=== PATIENT | male | born 1960 | race Caucasian/White ===

== ENCOUNTER 2022-10-27 08:30 | Day surgery (SDC) | payer BC, SELFPAY ==
--- OUTSIDE RECORDS SUMMARY | 2022-10-27 08:32 | XMS_ITS | Continuity of Care Document ---
Author Name Unknown Organization [facility] Joao Malcolm lt Address [address] [place] [address]- Care Team Providers Care Nurse Esthetician Name Role Phone Jose Faust MD Primary Care Physician [phone] [place] [facility] [facility] [place] [facility] Adult [address] [place] [address]- [facility] Encounter Diagnosis Well adult exam(Discharge Diagnosis) - 03/09/20 Seasonal allergies(Discharge Diagnosis) - 03/09/20 Sleep apnea(Discharge Diagnosis) - 03/09/20 Lump in neck(Discharge Diagnosis) - 03/09/20 Xanthoma of left upper eyelid(Discharge Diagnosis) - 03/09/20 Facial skin lesion(Discharge Diagnosis) - 03/09/20 Hearing loss, left(Discharge Diagnosis) - 03/09/20 Attending Physician: Jose Faust MD Allergies, Adverse Reactions, Alerts Substance Reaction Severity Status doxycycline Active Immunizations Given and Recorded Vaccine Date Status Refusal Reason influenza virus vaccine, inactivated 04/30/19 Give n influenza virus vaccine, inactivated 05/10/18 Give n tetanus/diphtheria/pertussis, acel(Tdap) 1 02/26/18 Given 1Result Comment: [02/26/2018] [facility] [id number] Medications Advil 200 mg oral tablet 2 tablet = 400 mg, By Mouth, 3 times a day, 0 Refills, Maintenance, 12/06/18 8:32:10 EDT Start Date: 12/06/18 Status: Ordered Lien Allergy 60 mg oral tablet 1 tablet = 60 mg, By Mouth, Daily, # 30 tablet, 0 Refills, Maintenance, 10/21/19 9:52:00 EDT Start Date: 10/21/19 Status: Ordered BORON BORON, Refills 0, Maintenance, 11/21/18 13:23:24 EDT, Compound Start Date: 11/21/18 Status: Ordered Colace sodium 100 mg oral capsule 100 mg, 1, capsule, By Mouth, 2 times a day, PRN, # 20 capsule, Refills 0, Tot. Refills 0, Maintenance, for constipation, 12/12/19 13:17:00 EDT, Route to Pharmacy Electronically, [facility] # [facility],174, cm, 12/12/19 10:16:00 EDT, Height, 74, kg, ... Start Date: 12/12/19 Status: Ordered Flonase 50 mcg/inh nasal spray 1 sprays = 50 mcg, Nares, Both, 2 times a day, # 16 Gm, 1 Refills, Maintenance, 09/01/19 11:36:00 EST, Nasal [place], [facility] # 50, 1 sprays Nares, Both 2 times a day, 174, cm, 05/21/19 11:07:00EDT, Height, 74, kg, 01/14/18 14:23:00 EDT, Dry Weight Start Date: 09/01/19 Status: Ordered iodine 1 tablet, By Mouth, Daily, 0 Refills, Maintenance, 03/09/20 8:49:00 EDT Start Date: 03/09/20 Status: Ordered motrin motrin, Refills 0, Maintenance, 03/05/19 14:45:50 EDT, Compound Start Date: 03/05/19 Status: Ordered Multivitamin 1 tablet, By Mouth, Daily, 0 Refills, Maintenance, 01/13/18 16:26:01 EDT Start Date: 01/13/18 Status: Ordered Proctozone HC 2.5% rectal cream with applicator 1 application, Rectally, 2 times a day, # 30 Gm, 1 Refills, Maintenance, 01/12/20 9:49:00 EDT, Cream, [facility] # 50, 1 application Rectally 2 times a day,x14 days, 174, cm, 12/18/19 10:19:00 EDT, Height, 74, kg, 01/14/18 14:23:00 EDT, Dry Weight Start Date: 01/12/20 Stop Date: 02/09/20 Status: Ordered rosuvastatin 5 mg oral tablet 1 tablet = 5 mg, By Mouth, Every 48 hours, # 90 tablet, 1 Refills, Maintenance, 03/09/20 8:57:00 EDT, [facility] # [facility], 174, cm, 03/09/20 8:46:00 EDT, Height Start Date: 03/09/20 Status: Ordered Problem List Condition Effective Dates Status Health Status Inform ant Allergic rhinitis(Confirmed) Active BPPV (benign paroxysmal posi tional vertigo)(Confirmed) Active Deviated septum(Confirmed) Active Hyperglycemia(Confirmed) Active Hyperlipidemia(Confirmed) Active Facial skin lesion(Confirmed) Active Lump in neck(Confirmed) Active Night sweats(Confirmed) Active Obstructive sleep apnea(Confirmed) Active Well adult exam(Confirmed) Active Seasonal allergies(Confirmed) Active Sleep apnea(Confirmed) Active Tinnitus(Confirmed) Active Tubular adenoma of colon(Confirmed) Active Hearing loss, left(Confirmed) Active Xanthoma of left upper eyelid(Confirmed) Active Diagnosis Diagnosis Type Effective Dates Health Status Cl inical Service Informant Well adult exam Discharge Diagnosis 03/09/20 Seasonal allergies Discharge Diagnosis 03/09/20 Sleep apnea Discharge Diagnosis 03/09/20 Lump in neck Discharge Diagnosis 03/09/20 Xanthoma of left upper eyelid Discharge Diagnosis 03/09/20 Facial skin lesion Discharge Diagnosis 03/09/20 Hearing loss, left Discharge Diagnosis 03/09/20 Vital Signs Most recent to oldest [Reference Range]: 1 Height 174 cm (03/09/20 8:46 AM) Weight 74.9 kg (03/09/20 8:46 AM) Oxygen Saturation [94-100 %] 99 % (03/09/20 8:46 AM) Pulse Rate [55-90 bpm] 52 bpm *L* (03/09/20 8:46 AM) Body Mass Index [18.5-24.99] 24.74 (03/09/20 8:46 AM) Blood Pressure [90-138/55-84 mm Hg] 108/ 70mm Hg (03/09/20 8:46 AM) Respiratory Rate [16-30 br/min] 16 br/mi n (03/09/20 8:46 AM) Temperature [96.8-100.4 DegF] 97.9 DegF (03/09/20 8:46 AM) Mode of Delivery (Oxygen) Room air (03/09/20 8:46 AM) Blood pressure sites Arm, right (03/09/20 8:46 AM) Temperature Route Oral (03/09/20 8:46 AM) Weight Obtained Via Standing scale (03/09/20 8:46 AM) Social History Social History Type Response Smoking Status Never smoker; Tobacc o user in household: No entered on: 07/19/17 Sex
--- OUTSIDE RECORDS SUMMARY | 2022-10-27 08:32 | XMS_ITS | Continuity of Care Document ---
Author Name Unknown Organization [facility] Address [address] [place] [address] [address] [place] [address]- Care Team Providers Care Bass Viol Repairer Name Role Phone Jose Faust MD Primary Care Physician [place] [facility] [place] 01/12/20 - 01/19/[address] [place] [address]- [facility] Attending Physician: Antoinette DUDLEY, Krissy Dean Referring Physician: Jose Faust MD Allergies, Adverse Reactions, Alerts Substance Reaction Severity Status doxycycline Active Immunizations Given and Recorded Vaccine Date Status Refusal Reason influenza virus vaccine, inactivated 04/30/19 Give n influenza virus vaccine, inactivated 05/10/18 Give n tetanus/diphtheria/pertussis, acel(Tdap) 1 02/26/18 Given 1Result Comment: [02/26/2018] [facility] [id number] Medications Advil 200 mg oral tablet 2 [...] 12/12/19 13:17:00 EDT, Route to Pharmacy Electronically, [facility] # 50,174, cm, 12/12/19 10:16:00 EDT, Height, 74, kg, /... Start Date: 12/12/19 Status: Ordered Flonase 50 mcg/inh nasal spray 1 sprays = 50 mcg, Nares, Both, 2 times a day, # 16 Gm, 1 Refills, Maintenance, 09/01/19 11:36:00 EST, Nasal [place], [facility] # 50, 1 sprays Nares, Both 2 times a day, 174, cm, 05/21/19 11:07:00EDT, Height, 74, kg, 01/14/18 14:23:00 EDT, Dry Weight Start Date: 09/01/19 Status: Ordered motrin motrin, Refills 0, Maintenance, 03/05/19 14:45:50 EDT, Compound Start Date: 03/05/19 Status: Ordered Multivitamin 1 tablet, By Mouth, Daily, 0 Refills, Maintenance, 01/13/18 16:26:01 EDT Start Date: 01/13/18 Status: Ordered predniSONE 20 mg oral tablet 2 tablet = 40 mg, By Mouth, Daily, # 14 tablet, 0 Refills, Maintenance, 12/18/19 11:30:00 EDT, [facility] # 50, 174, cm, 12/18/19 10:19:00 EDT, Height, 74, kg, 01/14/18 14:23:00 EDT, Dry Weight Start Date: 12/18/19 Status: Ordered Proctozone HC 2.5% rectal cream with applicator 1 application, Rectally, 2 times a day, # 30 Gm, 1 Refills, Maintenance, 01/12/20 9:49:00 EDT, Cream, [facility] # 50, 1 application Rectally 2 times a day,x14 days, 174, cm, 12/18/19 10:19:00 EDT, Height, 74, kg, 01/14/18 14:23:00 EDT, Dry Weight Start Date: 01/12/20 Stop Date: 02/09/20 Status: Ordered rosuvastatin 5 mg oral tablet 1 tablet = 5 mg, By Mouth, Every 48 hours, # 90 tablet, 1 Refills, Maintenance, 12/04/18 11:38:11 EDT Start Date: 12/04/18 Status: Ordered Problem List Condition Effective Dates Status Health Status Inform ant Allergic rhinitis(Confirmed) Active BPPV (benign paroxysmal posi tional vertigo)(Confirmed) Active Deviated septum(Confirmed) Active Hyperglycemia(Confirmed) Active Hyperlipidemia(Confirmed) Active Night sweats(Confirmed) Active Obstructive sleep apnea(Confirmed) Active Sleep apnea(Confirmed) Active Tinnitus(Confirmed) Active Tubular adenoma of colon(Confirmed) Active Hearing loss, left(Confirmed) Active Social History Social History Type Response Smoking Status Never smoker; Tobacc o user in household: No entered on: 07/19/17 Sex
--- OUTSIDE RECORDS SUMMARY | 2022-10-27 08:32 | XMS_ITS | Continuity of Care Document ---
Author Name Unknown Organization [facility] Malcolm lt Address [address] [place] [address]- Care Team Providers Care Photovoltaic Fabrication Technician Name Role Phone Jose Faust MD Primary Care Physician [place] [facility] [place] Date(s): 08/03/22 - 09/02/22 [facility] Adult [address] [place] [address]- Allergies, Adverse Reactions, Alerts Substance Reaction Severity Status doxycycline Active Immunizations Given and Recorded Vaccine Date Status Refusal Reason influenza virus vaccine, inactivated 05/30/22 Give n influenza virus vaccine, inactivated 04/28/21 Vahe rded influenza virus vaccine, inactivated 1 06/02/20 Gi farrah influenza virus vaccine, inactivated 04/30/19 Give n influenza virus vaccine, inactivated 05/10/18 Give n SARS-CoV-2 (COVID-19) mRNA BNT-162b2 vac 08/06/21 Recorded SARS-CoV-2 (COVID-19) mRNA BNT-162b2 vac 12/03/20 Recorded SARS-CoV-2 (COVID-19) mRNA BNT-162b2 vac 11/12/20 Recorded zoster vaccine, inactivated 07/14/20 Recorded zoster vaccine, inactivated 05/14/20 Recorded tetanus/diphtheria/pertussis, acel(Tdap) 2 02/26/18 Given 1Result Comment: PT DECLINED VIS 2Result Comment: [02/26/2018] [facility] [id number] Medications Lien Allergy 60 mg oral tablet 1 tablet = 60 mg, By Mouth, Daily, # 30 tablet, 0 Refills, Maintenance, 03/31/20 9:52:00 EDT Start Date: 10/21/19 Status: Ordered azelastine nasal 0.15% spray 2 sprays, Nares, Both, 2 times a day, PRN for allergy symptoms, # 30 mL, 5 Refills, Maintenance, 08/08/22 11:35:00 EST, [place], [facility] # [facility], Partial fill upon patient request if the prescription is for a schedule II opioid drug., 2 sprays Nares... Start Date: 08/08/22 Status: Ordered BORON BORON, Refills 0, Maintenance, 11/21/18 13:23:24 EDT, Compound Start Date: 11/21/18 Status: Ordered CoQ10 300 mg oral capsule 1 capsule = 300 mg, By Mouth, Daily, # 100 capsule, 0 Refills, Maintenance, 05/25/21 9:32:00 EDT, Capsule, Partial fill upon patient request if the prescription is for a schedule II opioid drug. Start Date: 05/25/21 Status: Ordered fluticasone 50 mcg/inh nasal spray See Instructions, INHALE 2 SPRAYS IN BOTH NOSTRILS ONCE A DAY IN THE MORNING, # 16 Gm, 1 Refills, [facility] # [facility], 30, INHALE 2 SPRAYS IN BOTH NOSTRILS ONCE A DAY IN THE MORNING, 174, cm, 08/30/21 8:45:00 EST, Height Start Date: 12/26/21 Status: Ordered Ginkgo 0 Refills, Maintenance, 08/30/21 9:00:00 EST, Partial fill upon patient request if the prescriptionis for a schedule II opioid drug. Start Date: 08/30/21 Status: Ordered motrin motrin, Refills 0, Maintenance, 03/05/19 14:45:50 EDT, Compound Start Date: 03/05/19 Status: Ordered Multivitamin 1 tablet, By Mouth, Daily, 0 Refills, Maintenance, 01/13/18 16:26:01 EDT Start Date: 01/13/18 Status: Ordered rosuvastatin 5 mg oral tablet 1 tablet = 5 mg, By Mouth, Every 48 hours, # 45 tablet, 0 Refills, Maintenance, 08/03/22 11:13:00 EST, [facility] # [facility], 174, cm, 05/30/22 8:31:00 EST, Height Start Date: 08/03/22 Stop Date: 4/12/23 Status: Ordered Problem List Condition Confirmation Course Effective Dates Status H ealth Status Informant Allergic rhinitis Confirmed Active BPPV (benign paroxysmal positional vertigo) Confirmed Active Deviated septum Confirmed Active Elevated blood pressure reading without diagnosis of hypertension Confirmed Active Hyperglycemia Confirmed Active Hyperlipidemia Confirmed Active Facial skin lesion Confirmed Active Lump in neck Confirmed Active Night sweats Confirmed Active Obstructive sleep apnea Confirmed Active Well adult exam Confirmed Active Seasonal allergies Confirmed Active Elevated serum creatinine Confirmed Active Sleep apnea Confirmed Active Tinnitus Confirmed Active Tubular adenoma of colon Confirmed Active Hearing loss, left Confirmed Active 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 Social History Social History Type Response Smoking Status Never smoker; Tobacc o user in household: No entered on: 07/19/17 Sex Patient Care team information Care Team Personnel Name: Jose Faust MD Position: [facility] Primary Care Physician Member Role: PCP Address: Address: [address] [place] [address]- Care Team Related Persons Name: COREY WILLOUGHBY Address: home [address] [place] [address] Name: CHRISTINA WILLOUGHBY Address: home [address] [place] [address]
--- OUTSIDE RECORDS SUMMARY | 2022-10-27 08:32 | XMS_ITS | Continuity of Care Document ---
Author Name Unknown Organization [facility] Malcolm lt Address [address] [place] [address]- Care Team Providers Care Volumetric Weigher Name Role Phone Christianne MANN, Jose Mccann Primary Care Physician [phone] Encounter [facility] [place](s[place] 12/14/20 - 01/13/21 [facility] Adult [address] [place] [address]- Allergies, Adverse Reactions, Alerts Substance Reaction Severity Status doxycycline Active Immunizations Given and Recorded Vaccine Date Status Refusal Reason zoster vaccine, inactivated 07/14/20 Recorded zoster vaccine, inactivated 05/14/20 Recorded influenza virus vaccine, inactivated 1 06/02/20 Gi farrah influenza virus vaccine, inactivated 04/30/19 Give n influenza virus vaccine, inactivated 05/10/18 Give n tetanus/diphtheria/pertussis, acel(Tdap) 2 02/26/18 Given 1Result Comment: PT DECLINED VIS 2Result Comment: [02/26/2018] [facility] [id number] Medications Advil 200 mg oral tablet 2 [...] EDT, Compound Start Date: 11/21/18 Status: Ordered Flonase 50 mcg/inh nasal spray 1 sprays = 50 mcg, Nares, Both, 2 times a day, # 16 Gm, 1 Refills, Maintenance, 09/01/19 11:36:00 EST, Nasal [place], [facility], 1 sprays Nares, Both [...] Mouth, Every 48 hours, # 90 tablet, 0 Refills, Maintenance, 06/01/20 10:03:00 EST, [facility], 174, cm, 03/17/20 9:00:00 EDT, Height Start Date: 06/01/20 Status: Ordered Problem List Condition Effective Dates [...] Active Xanthoma of left upper eyelid(Confirmed) Active Social History Social History Type Response Smoking Status Never smoker; Tobacc o user in household: No entered on: 07/19/17 Sex
--- OUTSIDE RECORDS SUMMARY | 2022-10-27 08:32 | XMS_ITS | Continuity of Care Document ---
Author Name Unknown Organization [facility] Address [address] [place] [address] [address] [place] [address]- Care Team Providers Care Feedlot Manager Name Role Phone Christianne MANN, Jose Mccann Primary Care Physician Encounter [facility] [place] Date(s): 01/12/20 - 02/11/[address] [place] [address]- [facility] Attending Physician: Leroy Cerda Admitting Physician: AdmLeroy boogie Referring Physician: AdmtrLeroy Allergies, Adverse Reactions, Alerts Substance Reaction Severity Status doxycycline Active Immunizations Given and Recorded Vaccine Date Status Refusal Reason influenza virus vaccine, inactivated 04/30/19 Give n influenza virus vaccine, inactivated 05/10/18 Give n tetanus/diphtheria/pertussis, acel(Tdap) 1 02/26/18 Given 1Result Comment: [02/26/2018] [facility] [id number] Medications Advil 200 mg oral tablet 2 [...] 12/12/19 13:17:00 EDT, Route to Pharmacy Electronically, [facility] # [facility],174, cm, 12/12/19 10:16:00 EDT, Height, 74, kg, 06/... Start Date: 12/12/19 Status: Ordered Flonase 50 mcg/inh nasal spray 1 sprays = 50 mcg, Nares, Both, 2 times a day, # 16 Gm, 1 Refills, Maintenance, 09/01/19 11:36:00 EST, Nasal [place], [facility] # 50, 1 sprays Nares, Both [...] tablet, 0 Refills, Maintenance, 12/18/19 11:30:00 EDT, [facility] # 50, 174, cm, 12/18/19 10:19:00 EDT, Height, 74, kg, 01/14/18 14:23:00 EDT, Dry Weight Start Date: 12/18/19 Status: Ordered Proctozone HC 2.5% rectal cream with applicator 1 application, Rectally, 2 times a day, # 30 Gm, 1 Refills, Maintenance, 01/12/20 9:49:00 EDT, Cream, [facility] # [facility], 1 application Rectally 2 [...]
--- OUTSIDE RECORDS SUMMARY | 2022-10-27 08:32 | XMS_ITS | Continuity of Care Document ---
Author Name Unknown Organization [facility] Joao Malcolm lt Address [address] [place] [address]- Care Team Providers Care Pearler Name Role Phone Jose Faust MD Primary Care Physician [place] [facility] [place] - 12/20/19 [facility] Adult [address] [place] [address]- [facility] Attending Physician: Jose Faust MD Allergies, Adverse Reactions, Alerts Substance Reaction Severity Status doxycycline Active Immunizations Given and Recorded Vaccine Date Status Refusal Reason influenza virus vaccine, inactivated 04/30/19 Give n influenza virus vaccine, inactivated 05/10/18 Give n tetanus/diphtheria/pertussis, acel(Tdap) 1 02/26/18 Given 1Result Comment: [02/26/2018] [facility] [id number] Medications Advil 200 mg oral tablet 2 [...] 1 Refills, Maintenance, 09/01/19 11:36:00 EST, Nasal [place], [facility] # [facility], 1 [...] 2 times a day, # 30 Gm, 0 Refills, Maintenance, 12/12/19 13:18:00 EDT, Cream, [facility] # [facility], 1 application Rectally 2 times a day,x14 days, 174, cm, 12/12/19 10:16:00 EDT, Height, 74, kg, 01/14/18 14:23:00 EDT, Dry Weight Start Date: 12/12/19 Stop Date: 12/26/19 Status: Ordered rosuvastatin 5 mg oral tablet [...]
--- OUTSIDE RECORDS SUMMARY | 2022-10-27 08:32 | XMS_ITS | Continuity of Care Document ---
Author Name Unknown Organization [facility] Joao Malcolm lt Address [address] [place] [address]- Care Team Providers Care Frame Opener Name Role Phone Christianne MANN, Jose Mccann Primary Care Physician Encounter [facility] [place] Date(s): 12/18/19 - 01/17/20 [facility] Adult [address] [place] [address]- [facility] Attending Physician: AdmLeroy boogie Admitting Physician: AdmLeroy boogie Referring Physician: AdmtrLeroy Allergies, Adverse Reactions, Alerts Substance Reaction Severity Status doxycycline Active Immunizations Given and Recorded Vaccine Date Status Refusal Reason influenza virus vaccine, inactivated 04/30/19 Give n influenza virus vaccine, inactivated 05/10/18 Give n tetanus/diphtheria/pertussis, acel(Tdap) 1 02/26/18 Given 1Result Comment: [02/26/2018] [facility] [id number] Medications Advil 200 mg oral tablet 2 [...] 12/12/19 13:17:00 EDT, Route to Pharmacy Electronically, [facility] # [facility],174, cm, 12/12/19 10:16:00 EDT, Height, 74, kg, /... Start Date: 12/12/19 Status: Ordered Flonase 50 mcg/inh nasal spray 1 sprays = 50 mcg, Nares, Both, 2 times a day, # 16 Gm, 1 Refills, Maintenance, 09/01/19 11:36:00 EST, Nasal [place], [facility] # [facility], 1 sprays Nares, [...] tablet, 0 Refills, Maintenance, 12/18/19 11:30:00 EDT, [facility] # 50, 174, cm, 12/18/19 10:19:00 EDT, Height, 74, kg, 01/14/18 14:23:00 EDT, Dry Weight Start Date: 12/18/19 Status: Ordered Proctozone HC 2.5% rectal cream with applicator 1 application, Rectally, 2 times a day, # 30 Gm, 1 Refills, Maintenance, 01/12/20 9:49:00 EDT, Cream, [facility] # 50, 1 application Rectally [...] of colon(Confirmed) Active Hearing loss, left(Confirmed) Active Procedures Procedure Date Related Diagnosis Body Site Status Polysomnogram 1 03/02/17 Completed 1SLE MEDICINE [facility] Social History Social History Type Response Smoking Status Never smoker; Tobacc o user in household: No entered on: 07/19/17 Sex
--- OUTSIDE RECORDS SUMMARY | 2022-10-27 08:32 | XMS_ITS | Continuity of Care Document ---
Author Name Unknown Organization [facility] Address [address] [place] [address]- Care Team Providers Care Patcher Name Role Phone Christianne MANN, Jose Mccann Primary Care Physician Encounter [facility] [place] Date(s): 03/24/20 - 04/23/20 [facility] [address] [place] [id number]- Allergies, Adverse Reactions, Alerts Substance Reaction Severity Status doxycycline Active Immunizations Given and Recorded Vaccine Date Status Refusal Reason influenza virus vaccine, inactivated 04/30/19 Give n influenza virus vaccine, inactivated 05/10/18 Give n tetanus/diphtheria/pertussis, acel(Tdap) 1 02/26/18 Given 1Result Comment: [02/26/2018] [facility] [id number] Medications Advil 200 mg oral tablet 2 [...] 1 Refills, Maintenance, 09/01/19 11:36:00 EST, Nasal [place], [facility] # [facility], 1 sprays [...]
--- OUTSIDE RECORDS SUMMARY | 2022-10-27 08:33 | XMS_ITS | Continuity of Care Document ---
Author Name Unknown Organization [facility] Malcolm lt Address [address] [place] [address]- Care Team Providers Care Director Television News Name Role Phone Jose Faust MD Primary Care Physician Encounter [facility] [place] Date(s): 01/16/22 - 02/15/22 [facility] Adult [address] [place] [address]- Allergies, Adverse Reactions, Alerts Substance Reaction Severity Status doxycycline Active Immunizations Given and Recorded Vaccine Date Status Refusal Reason SARS-CoV-2 (COVID-19) mRNA BNT-162b2 vac 08/06/21 Recorded SARS-CoV-2 (COVID-19) mRNA BNT-162b2 vac 12/03/20 Recorded SARS-CoV-2 (COVID-19) mRNA BNT-162b2 vac 11/12/20 Recorded influenza virus vaccine, inactivated 04/28/21 Vahe rded influenza virus vaccine, inactivated 1 06/02/20 Gi farrah influenza virus vaccine, inactivated 04/30/19 Give n influenza virus vaccine, inactivated 05/10/18 Give n zoster vaccine, inactivated 07/14/20 Recorded zoster vaccine, inactivated 05/14/20 Recorded tetanus/diphtheria/pertussis, acel(Tdap) 2 02/26/18 Given 1Result Comment: PT DECLINED VIS 2Result Comment: [02/26/2018] [facility] [id number] Medications Advil 200 mg oral tablet 2 [...] Mouth, Every 48 hours, # 45 tablet, 2 Refills, Maintenance, 09/13/21 15:25:00 EST, [facility], 174, cm, 08/30/21 8:45:00 EST, Height Start Date: 09/13/21 Stop Date: 06/10/22 Status: Ordered Problem List Condition Effective Dates Status Health Status Inform ant Allergic rhinitis(Confirmed) Active BPPV (benign paroxysmal posi tional vertigo)(Confirmed) Active Deviated septum(Confirmed) Active Elevated blood pressure read ing without diagnosis of hypertension(Confirmed) Active Hyperglycemia(Confirmed) Active Hyperlipidemia(Confirmed) Active Facial skin lesion(Confirmed) Active Lump in neck(Confirmed) Active Night sweats(Confirmed) Active Obstructive sleep apnea(Confirmed) Active Well adult exam(Confirmed) Active Seasonal allergies(Confirmed) Active Elevated serum creatinine(Confirmed) Active Sleep apnea(Confirmed) Active Tinnitus(Confirmed) Active Tubular adenoma of colon(Confirmed) Active Hearing loss, left(Confirmed) Active Xanthoma of left upper eyelid(Confirmed) Active Social History Social History Type Response Smoking Status Never smoker; Tobacc o user in household: No entered on: 07/19/17 Sex
--- OUTSIDE RECORDS SUMMARY | 2022-10-27 08:33 | XMS_ITS | Continuity of Care Document ---
Author Name Unknown Organization [facility] Delmar Malcolm lt Address [address] [place] [address]- Care Team Providers Care Chief Service Observer Name Role Phone Christianne MANN, Jose cMcann Primary Care Physician [place] [facility] [place]07[place]20 - 11/06/20 [facility] Adult [address] [place] [address]- Allergies, Adverse Reactions, Alerts Substance Reaction Severity [...] Comment: PT DECLINED VIS 2Result Comment: [02/26/2018] [facility] [id number] Medications Advil 200 mg oral tablet 2 [...] 1 Refills, Maintenance, 09/01/19 11:36:00 EST, Nasal [place], [facility], 1 sprays [...]
--- OUTSIDE RECORDS SUMMARY | 2022-10-27 08:33 | XMS_ITS | Continuity of Care Document ---
Author Name Unknown Organization [facility] Joao Malcolm lt Address [address] [place] [address]- Care Team Providers Care Change Management Name Role Phone Jose Faust MD Primary Care Physician Encounter [facility] ACCT R [id number] Date(s): 05/30/22 - 06/06/22 [facility] Adult [address] [place] [address]- Attending Physician: Jose Faust MD Allergies, Adverse [...] Comment: PT DECLINED VIS 2Result Comment: [02/26/2018] [facility] [id number] Medications Lien Allergy 60 mg oral tablet [...] Date: 06/10/22 Status: Ordered Problem List Condition Confirmation Course [...] 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 Vital Signs Most recent to oldest [Reference Range]: 1 Height 174 cm (05/30/22 8:31 AM) Weight 77.3 kg (05/30/22 8:31 AM) Oxygen Saturation [94-100 %] 98 % (05/30/22 8:31 AM) Pulse Rate [55-90 bpm] 56 bpm (05/30/22 8:31 AM) Body Mass Index [18.5-24.99 kg/m2] 25.53 kg/m2 *H* (05/30/22 8:31 AM) Blood Pressure [90-138/55-84 mm Hg] 122/ 82mm Hg (05/30/22 8:31 AM) Temperature [96.8-100.4 DegF] 98.1 DegF (05/30/22 8:31 AM) Mode of Delivery (Oxygen) Room air (05/30/22 8:31 AM) Blood pressure sites Arm, right (05/30/22 8:31 AM) Temperature Route Oral (05/30/22 8:31 AM) Weight Obtained Via Standing scale (05/30/22 8:31 AM) Social History Social History Type Response Smoking Status Never smoker; Tobacc o user in household: No entered on: 07/19/17 Sex Patient Care team information Care Team Personnel Name: Christianne MANN, Jose Mccann Position: S Primary Care Physician Member Role: PCP Address: Address: [address] [place] [address]- Care Team Related Persons Name: COREY WILLOUGHBY Address: home [address] [place] [address] Name: CHRISTINA WILLOUGHBY Address: home [address] [place] [address]
--- OUTSIDE RECORDS SUMMARY | 2022-10-27 08:33 | XMS_ITS ---
Author Name Saulo Hough Address [address] [place] [address] Organization [facility] Address [address] [place] [address] Care Team Providers Care Public Works Manager Name Role Phone Saulo Hough Unavailable [phone] PROBLEMS Type Condition ICD9-CM Code QTG61-FN Code Onset Dates Condition Status SNOMED Code Problem Encounter for screening for malignant neoplasm of colon Z12.11 Active 492465522 Problem History of adenomatous polyp of colon Z86.010 Active [id number] Problem Preprocedural examination Z01.818 Active [id number] Problem Encounter for screening for malignant neoplasm of rectum Z12.12 Active [id number] ALLERGIES Substance Reaction Event Type Date Status Doxycycline Unknown Drug Allergy Aug, Active ENCOUNTERS Encounter Location Date Diagnosis [facility] [place] [address], [place] [id number] Oct, [facility] [address] [place] [phone] Aug, History of adenomatous polyp of colon Z86.010 ; Preprocedural examination Z01.818 and Encounter for screening for malignant neoplasm of colon Z12.11 [facility] Outpatient [address] [place] [id number] Jun, [facility] [address] [place] [phone] May, [facility] [address] [place] [phone] 06 Apr, 2016 Preprocedural examination Z01.818 ; History of adenomatous polyp of colon Z86.010 ; Encounter for screening for malignant neoplasm of colon Z12.11 and Encounter for screening for malignant neoplasm of rectum Z12.12 [facility] [address] [place] [phone] 06 Dec, 2015 [facility] 10 [facility] [address] [place] [phone] Jul, [facility] Out[place] [address] [id number] Jun, [facility] [address] [place] [phone] May, Special screening for malignant neoplasms, colon V76.51 and Abdominal pain, right upper quadrant 789.01 [facility] ER [address], [place] [id number] Sep, [facility] Outpatient [address], [place] [id number] Jul, [facility] ER [address] [place] [id number] Jun, IMMUNIZATIONS Vaccine Route Administration Date Status Influenza Unknown Apr 22, 2022 Administered SOCIAL HISTORY Never Assessed REASON FOR REFERRAL FUNCTIONAL STATUS PLAN OF CARE Activity Details VITAL SIGNS Weight 171 lbs 2022-08-24 Weight 165 lbs 2016-04-27 Weight 155 lbs 2011-05-24 Height 69 in 2022-08-24 Height 69 in 2016-04-27 Height 69 in 2011-05-24 BMI 25.25 kg/m2 2022-08-24 BMI 24.36 kg/m2 2016-04-27 BMI 22.89 kg/m2 2011-05-24 Heart Rate 60 /min 2016-04-27 Temperature 97.1 degrees Fahrenheit Blood pressure systolic 000 mm Hg Blood pressure diastolic 00 mm Hg 2022-08 MEDICATIONS Medication Instructions Dosage Frequency Start Date End Date Duration Status Rosuvastatin Calcium 5 MG Orally Once a day 1/2 tablet 24h Active CoQ-10 Active Flonase Allergy Relief Active Multivitamin Adult Active Baylis Active PROCEDURES Procedure Date Ordered Result Body Site BP SCR NOT PRFRM REC REASON NOS Aug 24, 2022 TOBACCO NON-USER Aug 24, 2022 DOC MEDS VERIFIED W/PT OR RE Aug 24, 2022 COLORECTAL CA SCREEN DOC REV Aug 24, 2022 RESULTS Name Result Date Reference Range GI BIOPSY 2016-06-26 G.I. BIOPSY GI BIOPSY 2011-07-03 G.I. BIOPSY REASON FOR VISIT screening,hx polyps, Patient presents today for a recall colonoscopy, screening colonoscopy, Wrong date, Hx of polyps, screening, screening colonoscopy, 5 year colon recall, recall, Colonoscopy, recall Insurance Providers Health Insurance Type Health Plan Insurance Address Health Plan Insurance Phone Health Plan Insurance Name Health Plan Coverage Dates Member ID Patient Relationship to Subscriber Patient Address Patient Phone Patient Name Patient Date of Subscriber ID Subscriber Name Subscriber Date of Group No HMO BLUE BCBS PROFESSION AL CLAIMS [address] [facility] [id number] HMO BLUE self DOMINIC WILLOUGHBY [id number] FILI (NEEDS REFERRAL) [address] [facility] [phone] FILI (NEEDS REFERRAL) self DOMINIC WILLOUGHBY [id number]
--- OUTSIDE RECORDS SUMMARY | 2022-10-27 08:33 | XMS_ITS | Continuity of Care Document ---
Author Name Unknown Organization [facility] Malcolm lt Address [address] [place] [address]- Care Team Providers Care Architectural Technologist Name Role Phone Jose Faust MD Primary Care Physician [phone] Encounter [facility] Date(s): 09/12/21 - 10/12/21 [facility] Adult [address] [place] [address]- Allergies, Adverse Reactions, Alerts Substance Reaction Severity [...] Comment: PT DECLINED VIS 2Result Comment: [02/26/2018] [facility] [id number] Medications Advil 200 mg oral tablet 2 [...] opioid drug. Start Date: 05/25/21 Status: Ordered Flonase 50 mcg/inh nasal spray 2 sprays, Nares, Both, Daily in AM, # 16 Gm, 1 Refills, Maintenance, 03/01/21 10:30:00 EDT, [place], [facility], Partial fill upon patient request if the prescription is for a schedule II opioid drug., 2 sprays Nares, Both Daily in AM, 174, cm,... Start Date: 03/01/21 Status: Ordered Ginkgo 0 Refills, Maintenance, 08/30/21 [...]
--- OUTSIDE RECORDS SUMMARY | 2022-10-27 08:33 | XMS_ITS | Continuity of Care Document ---
Author Name Unknown Organization [facility] Joao Malcolm lt Address [address] [place] [address]- Care Team Providers Care Mr Teacher Name Role Phone Christianne MANN, Jose Mccann Primary Care Physician [phone] Encounter [facility] Date(s): 06/18/20 - 07/18/20 [facility] Adult [address] [place] [address]- Allergies, Adverse Reactions, Alerts Substance Reaction Severity [...] Comment: PT DECLINED VIS 2Result Comment: [02/26/2018] [facility] [id number] Medications Advil 200 mg oral tablet 2 [...] 1 Refills, Maintenance, 09/01/19 11:36:00 EST, Nasal [place], [facility], 1 sprays [...]
--- OUTSIDE RECORDS SUMMARY | 2022-10-27 08:33 | XMS_ITS | Continuity of Care Document ---
Author Name Unknown Organization [facility] Malcolm lt Address [address] [place] [address]- Care Team Providers Care Business Services Vice President Name Role Phone Christianne MANN, Jose Mccann Primary Care Physician [place] [facility] [place] Date(s): 06/02/20 - 07/02/20 [facility] Adult [address] [place] [address]- Attending Physician: Leroy Cerda Admitting Physician: AdmLeroy boogie Referring Physician: AdmtrLeroy Allergies, Adverse Reactions, Alerts Substance Reaction Severity Status doxycycline Active Immunizations Given and Recorded Vaccine Date Status Refusal Reason influenza virus vaccine, inactivated 1 06/02/20 Gi farrah influenza virus vaccine, inactivated 04/30/19 Give n influenza virus vaccine, inactivated 05/10/18 Give n zoster vaccine, inactivated 05/14/20 Recorded tetanus/diphtheria/pertussis, acel(Tdap) 2 02/26/18 Given 1Result Comment: PT DECLINED VIS 2Result Comment: [02/26/2018] [facility] [id number] Medications Advil 200 mg oral tablet 2 [...] 1 Refills, Maintenance, 09/01/19 11:36:00 EST, Nasal [place], [facility], 1 sprays [...] Active Xanthoma of left upper eyelid(Confirmed) Active Procedures Procedure Date Related Diagnosis Body Site Status Polysomnogram 1 03/02/17 Completed 1SLEEP MEDICINE [facility] Social History Social History Type Response Smoking Status Never smoker; Tobacc o user in household: No entered on: 07/19/17 Sex
--- OUTSIDE RECORDS SUMMARY | 2022-10-27 08:33 | XMS_ITS | Continuity of Care Document ---
Author Name Unknown Organization [facility] Address [address] [place] [address]- Care Team Providers Care Electric Power Superintendent Name Role Phone Jose Faust MD Primary Care Physician [phone] [facility] [place] Date(s): 07/20/22 - 08/19/22 [facility] [address] [place] [address]- Allergies, Adverse Reactions, Alerts Substance Reaction Severity [...] Comment: PT DECLINED VIS 2Result Comment: [02/26/2018] [facility] [id number] Medications Lien Allergy 60 mg oral tablet 1 tablet = 60 mg, By Mouth, Daily, # 30 tablet, 0 Refills, Maintenance, 03/31/20 9:52:00 EDT Start Date: 10/21/19 Status: Ordered azelastine nasal 0.15% spray 2 sprays, Nares, Both, 2 times a day, PRN for allergy symptoms, # 30 mL, 5 Refills, Maintenance, 08/08/22 11:35:00 EST, [place], [facility], Partial fill [...] Team Personnel Name: Jose Faust MD Position: [facility] Primary Care Physician Member Role: PCP Address: Address: [address] [place] [address]- Care Team Related Persons Name: COREY WILLOUGHBY Address: home [address] [place] [address] Name: CHRISTINA WILLOUGHBY Address: home [address] [place] [address]
--- OUTSIDE RECORDS SUMMARY | 2022-10-27 08:33 | XMS_ITS | Continuity of Care Document ---
Author Name Unknown Organization [facility] Malcolm lt Address [address] [place] [address]- Care Team Providers Care Infectious Diseases Physician Name Role Phone Jose Faust MD Primary Care Physician En[place] [facility] [place] Date(s): 02/25/21 - 03/27/21 [facility] Adult [address] [place] [address]- Allergies, Adverse Reactions, Alerts Substance Reaction Severity Status doxycycline Active Immunizations Given and Recorded Vaccine Date Status Refusal Reason SARS-CoV-2 (COVID-19) mRNA BNT-162b2 vac 12/03/20 Recorded SARS-CoV-2 (COVID-19) mRNA BNT-162b2 vac 11/12/20 Recorded zoster vaccine, inactivated 07/14/20 Recorded zoster vaccine, inactivated 05/14/20 Recorded influenza virus vaccine, inactivated 1 06/02/20 Gi farrah influenza virus vaccine, inactivated 04/30/19 Give n influenza virus vaccine, inactivated 05/10/18 Give n tetanus/diphtheria/pertussis, acel(Tdap) 2 02/26/18 Given 1Result Comment: PT DECLINED VIS 2Result Comment: [02/26/2018] [facility] [id number] Medications Advil 200 mg oral tablet 2 [...] Gm, 1 Refills, Maintenance, 03/01/21 10:30:00 EDT, [place], [facility], Partial fill upon patient request if the prescription is for a schedule II opioid drug., 2 sprays Nares, Both Daily in AM, 174, cm,... Start Date: 03/01/21 Status: Ordered motrin motrin, Refills 0, Maintenance, [...]
--- OUTSIDE RECORDS SUMMARY | 2022-10-27 08:33 | XMS_ITS | Continuity of Care Document ---
Author Name Unknown Organization [facility] Joao Malcolm lt Address [address] [place] [address]- Care Team Providers Care Rn Labor Delivery Name Role Phone Christianne MANN, Jose Mccann Primary Care Physician [phone] En[place] [facility] [place] Date(s): 10/21/19 - 10/31/19 [facility] Adult [address] [place] [address] [facility] Attending Physician: AdmLeryo boogie Admitting Physician: AdmLeroy boogie Referring Physician: AdmtrLeroy Allergies, Adverse Reactions, Alerts Substance Reaction Severity Status doxycycline Active Immunizations Given and Recorded Vaccine Date Status Refusal Reason influenza virus vaccine, inactivated 04/30/19 Give n influenza virus vaccine, inactivated 05/10/18 Give n tetanus/diphtheria/pertussis, acel(Tdap) 1 02/26/18 Given 1Result Comment: [02/26/2018] [facility] [id number] Medications Advil 200 mg oral tablet 2 [...] 1 Refills, Maintenance, 09/01/19 11:36:00 EST, Nasal [place], [facility], 1 sprays Nares, Both 2 times a day, 174, cm, 05/21/19 11:07:00EDT, Height, 74, kg, 01/14/18 14:23:00 EDT, Dry Weight Start Date: 09/01/19 Status: Ordered meclizine 25 mg oral tablet 1 tablet = 25 mg, By Mouth, 4 times a day, # 30 tablet, 0 Refills, Maintenance, 10/21/19 9:53:00 EDT Start Date: 10/21/19 Status: Ordered motrin motrin, Refills 0, Maintenance, 03/05/19 14:45:50 EDT, Compound Start Date: 03/05/19 Status: Ordered Multivitamin 1 tablet, By Mouth, Daily, 0 Refills, Maintenance, 01/13/18 16:26:01 EDT Start Date: 01/13/18 Status: Ordered predniSONE 1 mg oral tablet 2 tablet = 2 mg, By Mouth, Daily, with food or milk, # 60 tablet, 0 Refills, Maintenance, 10/21/19 9:54:00 EDT, Tablet, [facility], 174, cm, 05/21/19 11:07:00 EDT, Height, 74, kg, 01/14/18 14:23:00 EDT, Dry Weight Start Date: 10/21/19 Status: Ordered predniSONE 20 mg oral tablet 2 tablet = 40 mg, By Mouth, Daily, # 14 tablet, 0 Refills, Maintenance, 10/21/19 9:55:00 EDT, Tablet, [facility], 174, cm, 05/21/19 11:07:00 EDT, Height, 74, kg, 01/14/18 14:23:00 EDT, Dry Weight Start Date: 10/21/19 Status: Ordered rosuvastatin 5 mg oral tablet [...] Status Polysomnogram 1 03/02/17 Completed 1SLE MEDICINE [facility] Social History Social History Type Response Smoking Status Never smoker; Tobacc o user in household: No entered on: 07/19/17 Sex
--- OUTSIDE RECORDS SUMMARY | 2022-10-27 08:33 | XMS_ITS | Continuity of Care Document ---
Author Name Unknown Organization [facility] Malcolm lt Address [address] [place] [address]- Care Team Providers Care Fish Protector Name Role Phone Jose Faust MD Primary Care Physician En[facility] Date(s): 04/07/22 - 05/07/22 [facility] Adult [address] [place] [address]- Allergies, Adverse Reactions, Alerts Substance Reaction Severity [...] DECLINED VIS 2Result Comment: [02/26/2018] [facility] [id number] Medications Advil 200 mg oral tablet 2 [...] on: 07/19/17 Sex Patient Care team information Personnel Name: Christianne MANN, Jose Mccann Address: Address: [address] [place] [address]-
--- OUTSIDE RECORDS SUMMARY | 2022-10-27 08:33 | XMS_ITS | Continuity of Care Document ---
Author Name Unknown Organization [facility] Malcolm lt Address [address] [place] [address]- Care Team Providers Care Promotion Producer Name Role Phone Jose Faust MD Primary Care Physician [phone] [place] [facility] [id number] Date(s): 08/30/21 - 09/06/21 [facility] Adult [address] [place] [address]- Attending Physician: Jose Faust MD Allergies, Adverse [...] Comment: PT DECLINED VIS 2Result Comment: [02/26/2018] [facility] [id number] Medications Advil 200 mg oral tablet 2 [...] Gm, 1 Refills, Maintenance, 03/01/21 10:30:00 EDT, [place], [email or web address], Partial fill upon patient [...] Mouth, Every 48 hours, # 45 tablet, 1 Refills, Maintenance, 05/25/21 9:45:00 EDT, [facility], 174, cm, 05/25/21 9:26:00 EDT, Height Start Date: 05/25/21 Status: Ordered Problem List Condition Effective Dates [...] Active Xanthoma of left upper eyelid(Confirmed) Active Vital Signs Most recent to oldest [Reference Range]: 1 Height 174 cm (08/30/21 8:45 AM) Weight 74.5 kg (08/30/21 8:45 AM) Body Mass Index [18.5-24.99] 24.61 (08/30/21 8:45 AM) Weight Obtained Via Standing scale (08/30/21 8:45 AM) Social History Social History Type Response Smoking Status Never smoker; Tobacc o user in household: No entered on: 07/19/17 Sex
--- OUTSIDE RECORDS SUMMARY | 2022-10-27 08:33 | XMS_ITS | Continuity of Care Document ---
Author Name Unknown Organization [facility] Malcolm lt Address [address] [place] [address]- Care Team Providers Care Assessment Expert Name Role Phone Jose Faust MD Primary Care Physician [place] [facility] [place] 08/03/22 - 09/02/22 [facility] Adult [address] [place] [address]- Allergies, Adverse Reactions, Alerts Substance Reaction Severity [...] Comment: PT DECLINED VIS 2Result Comment: [02/26/2018] [facility] [id number] Medications Lien Allergy 60 mg oral tablet 1 tablet = 60 mg, By Mouth, Daily, # 30 tablet, 0 Refills, Maintenance, 03/31/20 9:52:00 EDT Start Date: 10/21/19 Status: Ordered azelastine nasal 0.15% spray 2 sprays, Nares, Both, 2 times a day, PRN for allergy symptoms, # 30 mL, 5 Refills, Maintenance, 08/08/22 11:35:00 EST, [place], [facility], Partial fill [...] Team Personnel Name: Jose Faust MD Position: [facility] Primary Care Physician Member Role: PCP Address: Address: [address] [place] [address]- Care Team Related Persons Name: COREY WILLOUGHBY Address: home [address] [place] [address] Name: CHRISTINA WILLOUGHBY Address: home [address] [place] [address]
--- OUTSIDE RECORDS SUMMARY | 2022-10-27 08:33 | XMS_ITS | Continuity of Care Document ---
Author Name Unknown Organization [facility] Address [address] [place] [address]- Care Team Providers Care Braille Operator Name Role Phone Christianne MANN, Jose Mccann Primary Care Physician [place] [facility] [place]/17/22 - 05/17/[address] [address]- Allergies, Adverse Reactions, Alerts Substance Reaction Severity [...] Comment: PT DECLINED VIS 2Result Comment: [02/26/2018] [facility] [id number] Medications Advil 200 mg oral tablet 2 [...] Name: Christianne MANN, Jose Mccann Address: Address: [address] [place] [address]
--- OUTSIDE RECORDS SUMMARY | 2022-10-27 08:33 | XMS_ITS | Continuity of Care Document ---
Author Name Unknown Organization [facility] Address [address] [place] [address] D[address] [place] [address]- Care Team Providers Care Motion Picture Photographer Name Role Phone Christianne MANN, Jose Mccann Primary Care Physician Encounter [facility] [place] [place] Date(s): 12/12/19 - 12/19/[address] [place] [address]- [facility] Encounter Diagnosis Bleeding internal hemorrhoids(Discharge Diagnosis) - 12/12/19 Attending Physician: Antoinette DUDLEY, Krissy Dean Referring Physician: Jose Faust MD Allergies, Adverse Reactions, Alerts Substance Reaction Severity Status doxycycline Active Immunizations Given and Recorded Vaccine Date Status Refusal Reason influenza virus vaccine, inactivated 04/30/19 Give n influenza virus vaccine, inactivated 05/10/18 Give n tetanus/diphtheria/pertussis, acel(Tdap) 1 02/26/18 Given 1Result Comment: [02/26/2018] [facility] [id number] Medications Advil 200 mg oral tablet 2 [...] 12/12/19 13:17:00 EDT, Route to Pharmacy Electronically, [facility],174, cm, 12/12/19 10:16:00 EDT, Height, 74, kg, /... Start Date: 12/12/19 Status: Ordered Flonase 50 mcg/inh nasal spray 1 sprays = 50 mcg, Nares, Both, 2 times a day, # 16 Gm, 1 Refills, Maintenance, 09/01/19 11:36:00 EST, Nasal [place], [facility], 1 sprays [...] tablet, 0 Refills, Maintenance, 12/18/19 11:30:00 EDT, [facility], 174, cm, 12/18/19 10:19:00 EDT, Height, 74, kg, 01/14/18 14:23:00 EDT, Dry Weight Start Date: 12/18/19 Status: Ordered Proctozone HC 2.5% rectal cream with applicator 1 application, Rectally, 2 times a day, # 30 Gm, 0 Refills, Maintenance, 12/12/19 13:18:00 EDT, [place], [facility], 1 application [...] of colon(Confirmed) Active Hearing loss, left(Confirmed) Active Diagnosis Diagnosis Type Effective Dates Health Status Clinical Service Informant Bleeding internal hemorrhoids Discharge Diagnosis 12/12/19 Vital Signs Most recent to oldest [Reference Range]: 1 Height 174 cm (12/12/19 10:16 AM) Weight 75.9 kg (12/12/19 10:16 AM) Body Mass Index [18.5-24.99] 25.07 *H* (12/12/19 10:16 AM) Blood Pressure [90-138/55-84 mm Hg] 147/ 91mm Hg *H* (12/12/19 10:16 AM) Temperature [96.8-100.4 DegF] 97.3 DegF (12/12/19 10:16 AM) Social History Social History Type Response Smoking Status Never smoker; Tobacc o user in household: No entered on: 07/19/17 Sex
--- OUTSIDE RECORDS SUMMARY | 2022-10-27 08:33 | XMS_ITS | Continuity of Care Document ---
Author Name Unknown Organization [facility] Malcolm lt Address [address] [place] [address]- Care Team Providers Care Bander Operator Name Role Phone Jose Faust MD Primary Care Physician Encounter [facility] [place] Date(s): 01/17/22 - 01/24/22 [facility] Adult [address] [place] [address]- Attending Physician: Josefina Ibrahim Allergies, Adverse Reactions, Alerts Substance Reaction Severity [...] Comment: PT DECLINED VIS 2Result Comment: [02/26/2018] [facility] [id number] Medications Advil 200 mg oral tablet 2 [...] oldest [Reference Range]: 1 Height 174 cm (01/17/22 10:35 AM) Weight 74.54 kg (01/17/22 10:35 AM) Body Mass Index [18.5-24.99] 24.62 (01/17/22 10:35 AM) Social History Social History Type Response Smoking Status Never smoker; Tobacc o user in household: No entered on: 07/19/17 Sex
--- OUTSIDE RECORDS SUMMARY | 2022-10-27 08:33 | XMS_ITS | Continuity of Care Document ---
Author Name Unknown Organization [facility] Joao Malcolm lt Address [address] [place] [address]- Care Team Providers Care Sed Special Education Teacher Name Role Phone Christianne MANN, Jose Mccann Primary Care Physician Encounter [facility] Date(s): 06/01/20 - 07/01/20 [facility] Adult [address] [place] [address]- Allergies, Adverse Reactions, Alerts Substance Reaction Severity Status doxycycline Active Immunizations Given and Recorded Vaccine Date Status Refusal Reason influenza virus vaccine, inactivated 1 06/02/20 Gi farrah influenza virus vaccine, inactivated 04/30/19 Give n influenza virus vaccine, inactivated 05/10/18 Give n zoster vaccine, inactivated 05/14/20 Recorded tetanus/diphtheria/pertussis, acel(Tdap) 2 02/26/18 Given 1Result Comment: PT DECLINED VIS 2Result Comment: [02/26/2018] [facility] [id number] Medications Advil 200 mg oral tablet 2 [...] 1 Refills, Maintenance, 09/01/19 11:36:00 EST, Nasal [place], [facility], 1 sprays [...]
--- OUTSIDE RECORDS SUMMARY | 2022-10-27 08:33 | XMS_ITS | Continuity of Care Document ---
Author Name Unknown Organization [facility] Address [address] [place] [address] [address] [place] [address]- Care Team Providers Care Diet Kitchen Cook Name Role Phone Jose Faust MD Primary Care Physician Encounter [facility] Date(s): 12/10/19 - 01/10/[address] [place] [address]- [facility] Attending Physician: Antoinette DUDLEY, Krissy Dean Referring Physician: Jose Faust MD Allergies, Adverse Reactions, Alerts Substance Reaction Severity Status doxycycline Active Immunizations Given and Recorded Vaccine Date Status Refusal Reason influenza virus vaccine, inactivated 04/30/19 Give n influenza virus vaccine, inactivated 05/10/18 Give n tetanus/diphtheria/pertussis, acel(Tdap) 1 02/26/18 Given 1Result Comment: [02/26/2018] [facility] [id number] Medications Advil 200 mg oral tablet 2 [...] 12/12/19 13:17:00 EDT, Route to Pharmacy Electronically, [facility],174, cm, 12/12/19 10:16:00 EDT, Height, 74, kg, /... Start Date: 12/12/19 Status: Ordered Flonase 50 mcg/inh nasal spray 1 sprays = 50 mcg, Nares, Both, 2 times a day, # 16 Gm, 1 Refills, Maintenance, 09/01/19 11:36:00 EST, Nasal [place], [facility], 1 [...] tablet, 0 Refills, Maintenance, 12/18/19 11:30:00 EDT, [facility], 174, cm, 12/18/19 10:19:00 EDT, Height, 74, kg, 01/14/18 14:23:00 EDT, Dry Weight Start Date: 12/18/19 Status: Ordered Proctozone HC 2.5% rectal cream with applicator 1 application, Rectally, 2 times a day, # 30 Gm, 0 Refills, Maintenance, 12/12/19 13:18:00 EDT, Cream, [facility], 1 [...]
--- OUTSIDE RECORDS SUMMARY | 2022-10-27 08:33 | XMS_ITS | Continuity of Care Document ---
Author Name Unknown Organization [facility] Joao Malcolm lt Address [address] [place] [address]- Care Team Providers Care Straightener Name Role Phone Christianne MANN, Jose Mccann Primary Care Physician Encounter [facility] Date(s): 03/17/20 - 04/16/20 [facility] Adult [address] [place] [address]- [facility] Attending Physician: Admtr, Ar8 Admitting Physician: Admtr, Ar8 Referring Physician: Admtr, Ar8 Allergies, Adverse Reactions, Alerts Substance Reaction Severity Status doxycycline Active Immunizations Given and Recorded Vaccine Date Status Refusal Reason influenza virus vaccine, inactivated 04/30/19 Give n influenza virus vaccine, inactivated 05/10/18 Give n tetanus/diphtheria/pertussis, acel(Tdap) 1 02/26/18 Given 1Result Comment: [02/26/2018] [facility] [id number] Medications Advil 200 mg oral tablet 2 [...] 1 Refills, Maintenance, 09/01/19 11:36:00 EST, Nasal [place], [facility], 1 sprays [...] tablet, 1 Refills, Maintenance, 03/09/20 8:57:00 EDT, [facility], 174, cm, 03/09/20 8:46:00 [...] Status Polysomnogram 1 03/02/17 Completed 1SLE MEDICINE [facility] Social History Social History Type Response Smoking Status Never smoker; Tobacc o user in household: No entered on: 07/19/17 Sex
--- OUTSIDE RECORDS SUMMARY | 2022-10-27 08:33 | XMS_ITS | Continuity of Care Document ---
Author Name Unknown Organization [facility] Address [address] [place] [address]- Care Team Providers Care Stripe Matcher Name Role Phone Christianne MANN, Jose Mccann Primary Care Physician [phone] Encounter [facility] Date(s): 03/31/20 - 04/30/20 [facility] [address] [place] [address]- Allergies, Adverse Reactions, Alerts Substance Reaction Severity Status doxycycline Active Immunizations Given and Recorded Vaccine Date Status Refusal Reason influenza virus vaccine, inactivated 04/30/19 Give n influenza virus vaccine, inactivated 05/10/18 Give n tetanus/diphtheria/pertussis, acel(Tdap) 1 02/26/18 Given 1Result Comment: [02/26/2018] [facility] [id number] Medications Advil 200 mg oral tablet 2 [...] 1 Refills, Maintenance, 09/01/19 11:36:00 EST, Nasal [place], [facility], 1 sprays [...]
--- OUTSIDE RECORDS SUMMARY | 2022-10-27 08:33 | XMS_ITS | Continuity of Care Document ---
Author Name Unknown Organization [facility] Joao Malcolm lt Address [address] [place] [address]- Care Team Providers Care Take Down Sorter Name Role Phone Jose Faust MD Primary Care Physician Encounter [facility] Date(s): 12/18/19 - 12/25/19 [facility] Adult [address] [place] [address]- [facility] Attending Physician: Jose Faust MD Allergies, Adverse Reactions, Alerts Substance Reaction Severity Status doxycycline Active Immunizations Given and Recorded Vaccine Date Status Refusal Reason influenza virus vaccine, inactivated 04/30/19 Give n influenza virus vaccine, inactivated 05/10/18 Give n tetanus/diphtheria/pertussis, acel(Tdap) 1 02/26/18 Given 1Result Comment: [02/26/2018] [facility] [id number] Medications Advil 200 mg oral tablet 2 [...] 12/12/19 13:17:00 EDT, Route to Pharmacy Electronically, [facility],174, cm, 12/12/19 10:16:00 EDT, Height, 74, kg, ... Start Date: 12/12/19 Status: Ordered Flonase 50 mcg/inh nasal spray 1 sprays = 50 mcg, Nares, Both, 2 times a day, # 16 Gm, 1 Refills, Maintenance, 09/01/19 11:36:00 EST, Nasal [place], [facility], 1 sprays Nares, [...] tablet, 0 Refills, Maintenance, 12/18/19 11:30:00 EDT, [facility], 174, cm, 12/18/19 10:19:00 EDT, Height, 74, kg, 01/14/18 14:23:00 EDT, Dry Weight Start Date: 12/18/19 Status: Ordered Proctozone HC 2.5% rectal cream with applicator 1 application, Rectally, 2 times a day, # 30 Gm, 0 Refills, Maintenance, 12/12/19 13:18:00 EDT, Cream, [facility], 1 application Rectally [...] of colon(Confirmed) Active Hearing loss, left(Confirmed) Active Vital Signs Most recent to oldest [Reference Range]: 1 Height 174 cm (12/18/19 10:19 AM) Social History Social History Type Response Smoking Status Never smoker; Tobacc o user in household: No entered on: 07/19/17 Sex
--- OUTSIDE RECORDS SUMMARY | 2022-10-27 08:33 | XMS_ITS | Continuity of Care Document ---
Author Name Unknown Organization [facility] Malcolm lt Address [address] [place] [address]- Care Team Providers Care Medical Doctor Md Name Role Phone Christianne MANN, Jose Mccann Primary Care Physician [phone] En[place] [facility] Date(s): 01/17/22 - 02/16/22 [facility] Adult [address] [place] [address]- Attending Physician: Admtr, Ar8 Admitting Physician: Admtr, [...] PT DECLINED VIS 2Result Comment: [02/26/2018] [facility] [id number] Medications Advil 200 mg oral tablet 2 [...] Status Polysomnogram 1 03/02/17 Completed 1SLE MEDICINE [facility] Social History Social History Type Response Smoking Status Never smoker; Tobacc o user in household: No entered on: 07/19/17 Sex
--- OUTSIDE RECORDS SUMMARY | 2022-10-27 08:33 | XMS_ITS | Continuity of Care Document ---
Author Name Unknown Organization [facility] Address [address] [place] [address]- Care Team Providers Care Health And Fitness Professor Name Role Phone Christianne MANN, Jose Mccann Primary Care Physician Encounter [facility] Date(s): 08/08/22 - 09/07/[address] [address] Allergies, Adverse Reactions, Alerts Substance Reaction Severity [...] Comment: PT DECLINED VIS 2Result Comment: [02/26/2018] [facility] [id number] Medications Lien Allergy 60 mg oral tablet 1 tablet = 60 mg, By Mouth, Daily, # 30 tablet, 0 Refills, Maintenance, 10/21/19 9:52:00 EDT Start Date: 10/21/19 Status: Ordered azelastine nasal 0.15% spray 2 sprays, Nares, Both, 2 times a day, PRN for allergy symptoms, # 30 mL, 5 Refills, Maintenance, 08/08/22 11:35:00 EST, [place], [facility], Partial fill [...] EST, Height Start Date: 08/03/22 Stop Date: 11/01/22 Status: Ordered Problem List Condition Confirmation Course [...] Team Personnel Name: Jose Faust MD Position: [facility] Primary Care Physician Member Role: PCP Address: Address: [address] [place] [address]- Care Team Related Persons Name: COREY WILLOUGHBY Address: home [address] [place] [address] Name: CHRISTINA WILLOUGHBY Address: home [address] [place] [address]
--- OUTSIDE RECORDS SUMMARY | 2022-10-27 08:33 | XMS_ITS | Continuity of Care Document ---
Author Name Unknown Organization [facility] Malcolm lt Address [address] [place] [address]- Care Team Providers Care Greige Goods Examiner Name Role Phone Jose Faust MD Primary Care Physician Encounter [facility] Date(s): 05/25/21 - 06/01/21 [facility] Adult [address] [place] [address]- Attending Physician: Jose Faust MD Allergies, Adverse Reactions, Alerts Substance Reaction Severity Status doxycycline Active Immunizations Given and Recorded Vaccine Date Status Refusal Reason influenza virus vaccine, inactivated 04/28/21 Vahe rded influenza virus vaccine, inactivated 1 06/02/20 Gi farrah influenza virus vaccine, inactivated 04/30/19 Give n influenza virus vaccine, inactivated 05/10/18 Give n SARS-CoV-2 (COVID-19) mRNA BNT-162b2 vac 12/03/20 Recorded SARS-CoV-2 (COVID-19) mRNA BNT-162b2 vac 11/12/20 Recorded zoster vaccine, inactivated 07/14/20 Recorded zoster vaccine, inactivated 05/14/20 Recorded tetanus/diphtheria/pertussis, acel(Tdap) 2 02/26/18 Given 1Result Comment: PT DECLINED VIS 2Result Comment: [02/26/2018] [facility] [id number] Medications Advil 200 mg oral tablet 2 [...] Gm, 1 Refills, Maintenance, 03/01/21 10:30:00 EDT, [place], [facility], Partial fill upon [...] tablet, 1 Refills, Maintenance, 05/25/21 9:45:00 EDT, [facility], 174, cm, 05/25/21 9:26:00 [...] oldest [Reference Range]: 1 Height 174 cm (05/25/21 9:26 AM) Weight 76.4 kg (05/25/21 9:26 AM) Oxygen Saturation [94-100 %] 99 % (05/25/21 9:26 AM) Pulse Rate [55-90 bpm] 56 bpm (05/25/21 9:26 AM) Body Mass Index [18.5-24.99] 25.23 *H* (05/25/21 9:26 AM) Blood Pressure [90-138/55-84 mm Hg] 136/ 76mm Hg (05/25/21 9:26 AM) Respiratory Rate [16-30 br/min] 16 br/mi n (05/25/21 9:26 AM) Temperature [96.8-100.4 DegF] 98.0 DegF (05/25/21 9:26 AM) Mode of Delivery (Oxygen) Room air (05/25/21 9:26 AM) Blood pressure sites Arm, left (05/25/21 9:26 AM) Temperature Route Oral (05/25/21 9:26 AM) Weight Obtained Via Standing scale (05/25/21 9:26 AM) Social History Social History Type Response Smoking Status Never smoker; Tobacc o user in household: No entered on: 07/19/17 Sex
[2022-10-27 08:45] VITALS: BMI 24.2
[2022-10-27 08:46] VITALS: BP 129/82; PULSE 63; RESP 16; TEMP 36.4; O2SAT 98
[2022-10-27] MEDS: Lactated Ringers 500 ML 20 ML IVCONT (09:05)
--- NOTE | 2022-10-27 10:04 | P.CONAN_ITS ---
HPI - Anesthesia Eval Consult details Narrative: Screening ON LICENSE OF [facility] Past Medical History Medical History (Updated 10/26/22 @ 10:28 by Montserrat Brennan RN) History of deviated nasal septum Hyperlipidemia Sleep apnea treated with nocturnal bilevel positive airway pressure (BPAP) Family History Family history of problems with anesthesia: No Surgical History Surgical History (Updated 10/26/22 @ 10:28 by Montserrat Brennan RN) H/O colonoscopy H/O esophagogastroduodenoscopy H/O left inguinal hernia repair S/P right knee arthroscopy History of Problems with Anesthesia: No Social History Social History Patient Tobacco Use Status: Never used Tobacco Use of substances other than those prescribed or required for medical reasons: No Have you been hit, kicked, punched, or otherwise hurt by someone within the past year? If so, by whom?: No Are you DNR?: No Advance Directives: No Advance Directives Information Provided: Yes Meds Allergies Allergy/AdvReac Type Severity Reaction Status Date / Time bee pollen [BEE STINGS] Allergy Unknown SWELLING, Unverified 04/08/20 14:42 DIFF BREATHING doxycycline Allergy Unknown Verified 10/26/22 10:27 Active Medications: Current Medications Lactated Ringer's (Lr) 500 mls @ 20 mls/hr IVCONT .Q24H DORA Last Admin: 10/27/22 09:05 Dose: 20 mls/hr Sodium Biphosphate/Sodium Phosphate (Sodium Phosphate,Angelina-Dibasic 133 Ml Enema) 133 ml AR ONCE PRN PRN Reason: Poor Colonoscopy Prep Results Home Medications Medication Instructions Recorded Confirmed Last Taken Type CoQ-10 10/26/22 10/26/22 Unknown History Flonase Allergy Relief 10/26/22 Unknown History amoxicillin 875 mg-potassium 1 tab PO BID 10/26/22 10/26/22 Unknown History clavulanate 125 mg tablet benzonatate 100 mg capsule 100 mg PO TID 10/26/22 10/26/22 Unknown History boron 10/26/22 Unknown History rosuvastatin 5 mg tablet PO 10/26/22 Unknown History Exam Exam Date and Time: October 27, 2022 1004 Height,Weight and Vital Signs: Height 5 ft 9 in Weight 74.389 kg Last Vital Signs Temp 97.5 F 10/27/22 08:46 Pulse 63 10/27/22 08:46 Resp 16 10/27/22 08:46 BP 129/82 10/27/22 08:46 Pulse Ox 98 10/27/22 08:46 O2 Del Method Room Air 10/27/22 08:46 Airway Mallampati Class: II TM Dist: >3cm Loose/Missing/Broken Teeth: No Heart: rr Lungs: cta Assessment and Plan Assessment Anesthesia Assessment: Anesthesia Plan Discussed and Chart Reviewed Final Anesthetic Review Family History of Problems with Anesthesia: No History of Problems with Anesthesia: No NPO: Yes ASA Class: II Final Preanesthetic Review: No Changes in Pt Med Stat and Consent Obtained/Reviewed Patient Risk: Low Procedure Risk: Low Anesthetic Plan Anesthetic Plan: MAC: Disposition: Standard PACU
--- NOTE | 2022-10-27 10:36 | PM.OP ---
Brief Operative Note Date of Service: 10/27/22 Pre-op diagnosis: Screening Post-op diagnosis: other (Colon polyp) Procedure: Colonoscopy to the cecum with hot snare polypectomy Surgeon: Saulo Hough Anesthesia: MAC Was an Veteran Appeals Reviewer used for this Procedure?: No Estimated blood loss (mL): 0 Pathology: other (A. Ascending colon polyp) Condition: stable Disposition: PACU
[2022-10-27 10:38] VITALS: BP 108/60; PULSE 68; RESP 18; TEMP 36.6; O2SAT 96
[2022-10-27 10:53] VITALS: BP 131/76; PULSE 53; RESP 18; TEMP 36.1; O2SAT 97
--- NOTE | 2022-10-27 12:18 | OP_ITS ---
DATE OF SERVICE: 10/27/2022 SURGEON: Saulo Hough MD INDICATIONS: The patient presents for evaluation of colorectal cancer screening and personal history of tubular adenomas of the colon. Full consent has been obtained from him for this, including risks of bleeding and perforation. PREOPERATIVE DIAGNOSIS: POSTOPERATIVE DIAGNOSIS: PROCEDURE PERFORMED: Colonoscopy to the cecum with hot snare polypectomy. ESTIMATED BLOOD LOSS: COMPLICATIONS: ANESTHESIA: Monitored anesthesia care. ASSISTANTS: SPECIMENS: PREOPERATIVE DIAGNOSES: Colorectal cancer screening and personal history of tubular adenomas of the colon. POSTOPERATIVE DIAGNOSES: Colorectal cancer screening and personal history of tubular adenomas of the colon, colon polyp, diverticulosis, and internal hemorrhoids. DESCRIPTION OF PROCEDURE: The patient was placed in the left lateral decubitus position. The digital rectal exam revealed no abnormalities. The Olympus video pediatric colonoscope was entered into the rectum and advanced easily to the cecum. Once in the cecum, I did identify a normal-appearing cecal pouch with appendiceal orifice and a normal-appearing ileocecal valve. The entire cecum and ileocecal valve appeared normal. There was transillumination of light deep in the right lower quadrant. The scope was then slowly withdrawn assessing all mucosal surfaces carefully. Perforation was excellent. In the ascending colon, there was an approximately 6 to 8 mm polyp, which was removed by hot snare polypectomy and recovered by suction. The polypectomy site appeared clean, without any sign of residual polyp nor bleeding. I do not visualize any other polyps, colitis nor angiodysplasia. There is a mild amount of sigmoid diverticulosis. In the rectum, the scope was retroflexed visualizing small internal hemorrhoids, but no other pathology. The rectal mucosa appeared normal. The scope was straightened and withdrawn from the patient. He tolerated the procedure well and was returned to the recovery area in stable condition. IMPRESSION: 1. Colon polyp. 2. Diverticulosis. 3. Internal hemorrhoids. PLAN: The results of the pathology will be checked. I would recommend a repeat colonoscopy in 5 years. He was advised not to use any aspirin nor NSAIDs for 1 week. MD TRUMAN Vargas/LEO / [id number]
== END 2022-10-27 11:30 | disposition home or self-care (01) ==
PROVIDERS: PCP Internal Medicine; Visit Provider Internal Medicine
PROC: 0DJD8ZZ Inspection of Lower Intestinal Tract, Via Natural or Artificial Opening Endoscopic (ICD-10-PCS; CPT 45378; principal; 2022-10-27 09:30)
DX: Z12.11 Encounter for screening for malignant neoplasm of colon (principal); Z86.010 Personal history of colon polyps; D12.2 Benign neoplasm of ascending colon; K57.30 Diverticulosis of large intestine without perforation or abscess without bleeding; K64.8 Other hemorrhoids; G47.33 Obstructive sleep apnea (adult) (pediatric); E78.5 Hyperlipidemia, unspecified; Z79.899 Other long term (current) drug therapy; Z99.89 Dependence on other enabling machines and devices
CPT/HCPCS: 45385; 88305